=== PATIENT | female | born 1960 | race Caucasian/White ===

== ENCOUNTER 2024-12-04 16:33 | Inpatient (IN) | payer MEDICARE, MEDICAID, SELFPAY ==
[2024-12-04] VITALS (9 sets, daily range): BP systolic 130–156; BP diastolic 90–97; PULSE 92–106; RESP 16–22; TEMP 36.1–36.6; O2SAT 90–100; BMI 16.3; BMI 16.9
--- NOTE | 2024-12-04 16:58 | XR_ITS ---
Examination: AP chest single view TECHNIQUE: AP portable upright chest single view Exam date and time: December 04, 2024 1723 hours Comparison July 08, 2024 INDICATIONS: Onset shortness of breath today. FINDINGS: Moderate hyperexpansion Accentuation interstitial markings No lobar pneumonia Normal heart size Prominent osteopenia IMPRESSION: COPD Basilar bronchitis pattern
--- NOTE | 2024-12-04 16:59 | EKG_ITS ---
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
[2024-12-04] MEDS: IPRATROPIUM RT 0.5 MG/ 2.5 ML NEBU 1 MG INH (17:12)
[2024-12-04] MEDS: ALBUTEROL RT 2.5 MG/0.5 ML NEBU 10 MG INH (17:12)
[2024-12-04] MEDS: MethylPREDNISolone SOD SUCC 62.5 MG/ML 2ML VIAL 125 MG IVP (17:20)
[2024-12-04 17:28] LABS: Basophils # (Auto) 0.1 Thou/mm3 (0.0-0.2); Basophils % (Auto) 1 % (0-2.5); Eosinophils # (Auto) 0.7 Thou/mm3 (0.0-0.5); Eosinophils % (Auto) 6 % (0-10); Hemoglobin 11.7 g/dL (12.0-16.0); Immature Granulocytes % (Auto) 0 % (0-0); Immature Granulocytes Auto 0.04 Thou/mm3 (0.00-0.00); Lymphocytes # (Auto) 3.5 Thou/mm3 (1.0-4.8); Lymphocytes % (Auto) 28 % (10-50); Mean Corpuscular HGB Conc 32.5 g/dl (31.0-37.0); Mean Corpuscular Hemoglobin 30.4 pg (25.0-35.0); Mean Corpuscular Volume 94 fL (80-100); Monocytes # (Auto) 0.8 Thou/mm3 (0.0-0.8); Monocytes % (Auto) 7 % (0-12); Neutrophils # (Auto) 7.1 Thou/mm3 (1.8-7.7); Neutrophils % (Auto) 58 % (37-80); Nucleated Red Blood Cell % 0 /100 WBC (0); Platelet Count 493 Thou/mm3 (140-440); RDW Standard Deviation 54.1 fL (36.4-46.3); Red Blood Count 3.85 Miln/mm3 (4.00-5.20); White Blood Count 12.2 Thou/mm3 (3.6-11.0)
--- NOTE | 2024-12-04 17:41 | EDNOTE_ITS ---
ED SOB =RME/HPI General Chief Complaint: Shortness of Breath/Dyspnea Stated Complaint: I CAN'T BREATH X 4 DAYS ;USES HOME O2 WHEN NEEDED Time Seen by Provider: 12/04/24 17:27 Arrival date/time: 12/04/24 16:33 RME / HPI RME / HPI Narrative: DR. MCGEE MAIN ED EVALUATION: 64 year old female with past medical history significant for COPD on 3L home o2, primary hypertension, chronic pain on opiates presents to the Emergency Department with complaint of shortness of breath onset 4 days. Symptoms are moderate. Patient uses home oxygen when needed. Related Data Home Medications ?Medication ?Instructions ?Recorded ?Confirmed albuterol sulfate 90 mcg/actuation 2 puff IH Q4HR PRN COUGH OR 01/18/15 07/06/24 aerosol inhaler (ProAir HFA) CONGESTION ##0 hydrocodone 10 mg-acetaminophen 1 tab PO QID 10/26/22 07/06/24 325 mg tablet losartan 25 mg tablet 25 mg PO QDAY 03/15/24 07/06/24 metoprolol succinate 25 mg 25 mg PO QDAY 03/15/24 07/06/24 tablet,extended release 24 hr nicotine 14 mg/24 hr daily 14 mg topical QDAY 03/15/24 07/06/24 transdermal patch furosemide 20 mg tablet 20 mg PO QDAY 07/06/24 07/06/24 lidocaine 4 % topical patch 4 patch topical HS 07/06/24 07/06/24 Previous Rx's ?Medication ?Instructions ?Recorded fluticasone fur. 200 mcg-umeclid 1 inh inhalation Q24H COPD #60 ea 03/21/24 62.5 mcg-vilant 25 mcg inhalat.powder (Trelegy Ellipta) Allergies Allergy/AdvReac Type Severity Reaction Status Date / Time ibuprofen Allergy Severe THROAT Verified 12/04/24 16:35 SWELLS, CANT BREATH ketorolac Allergy Severe THROAT Verified 12/04/24 16:35 SWELLS, CANT BREATH naproxen Allergy Severe SWELLING Verified 12/04/24 16:35 TO THROAT, CANT BREATH NSAIDS (Non-Steroidal Allergy Severe THROAT Verified 12/04/24 16:35 Anti-Inflamma SWELLS, CANT BREATH tramadol Allergy Severe Swelling Verified 12/04/24 16:35 of Lip/Tongue/Throat Review of Systems Review of Systems Systems Reviewed: All systems reviewed, normal except as documented Narrative Review of Systems: GEN: No fever, no chills, no weight loss EYES: No discharge, no visual changes, no pain HEENT: No ear pain, no congestion, no sore throat PULM: + shortness of breath, no cough, no congestion CV: No chest pain, no dyspnea on exertion, no palpitations GI: No nausea, no vomiting, no diarrhea, no pain, no constipation : No frequency, no urgency and no dysuria MUSC/SKEL: No joint pain, no back pain SKIN: No rash PSYCH: No hallucinations, no depression HEME/LYMPH: No easy bleeding or bruising tendencies NEURO: No weakness, no headache Past Medical History Past Medical History NEUROLOGIC: Positive Cerebrovascular Accident (x3) CARDIAC: Positive Myocardial Infarction (x5) and Hypertension; Negative Cardiac Disorders or Congestive Heart Failure RESPIRATORY: Positive Chronic Obstructive Pulmonary Disease (COPD) and Emphysema; Negative Asthma GENITOURINARY: Negative Renal Disease MUSCULOSKELETAL: Positive Fibromyalgia ENDOCRINE: Positive Hypothyroidism; Negative Diabetes Mellitus Type 1 or Diabetes Mellitus Type 2 HEMATOLOGIC: Negative Sickle Cell Disease OTHER HISTORY: Positive Hospitalization and Falls (approx 1 month ago; tripped in house); Negative Blood Transfusions or Anesthesia Reactions Surgical History SURGICAL: Positive Coronary Stent and Hysterectomy Social History SMOKING STATUS: Former smoker SECOND HAND EXPOSURE: No SUBSTANCE USE: does not use ALCOHOL: Never ED Exam Narrative Physical exam: GENERAL APPEARANCE: alert and oriented x 4, well-developed, well-nourished, no acute distress VITALS: All vitals were reviewed and the pulse ox is 98% on 2L/min via nasal cannula. HEENT: Normocephalic, atraumatic; pupils equal, round, reactive to light; EOMI; mucous membranes pink, moist; oropharynx clear NECK: Supple LUNGS: CTABL; no wheezes, no rales, no rhonchi HEART: Regular rate, regular rhythm; normal S1, S2; no murmurs ABDOMEN: non distended; normal BS; soft, no tenderness, no guarding, no rebound; no masses, no organomegaly, no hernia BACK: no CVA tenderness EXTREMITIES: atraumatic; no edema NEUROLOGIC: awake; alert and oriented x4; cranial nerves II-XII grossly intact; no focal sensory or motor deficits PSYCHIATRIC: appropriate mood and affect SKIN: warm, dry, normal color; no rashes Course Course Course Narrative: 1800: Patient was signed out to Dr. Day. Past medical, surgical, social and family history reviewed. Vitals and home medications reviewed. Results and treatment plan discussed. They will assume the care of the patient at this time and will follow the patient, pending diagnostic tests and final disposition. Quality Measures none Orders Category Date Time Status Bedside COVID-19 Antigen Test NOW Care 12/04/24 17:00 Active Bedside Influenza A&B Antigen Test NOW Care 12/04/24 17:00 Completed Beverage Inspection Machine Tender NOW Care 12/04/24 16:58 Active EKG (ED ONLY) *Do not use* NOW Care 12/04/24 16:59 Completed EKG (ED Only) Stat Exams 12/04/24 16:59 Draft XR chest 1V portable Stat Exams 12/04/24 16:58 Completed B-Type Natriuretic Peptide Stat Lab 12/04/24 17:16 Completed CBC Stat Lab 12/04/24 17:16 Completed Comprehensive Metabolic Panel Stat Lab 12/04/24 17:16 Completed Magnesium Stat Lab 12/04/24 17:16 Completed Partial Thromboplastin Time Stat Lab 12/04/24 17:16 Completed Prothrombin Time with INR Stat Lab 12/04/24 17:16 Completed Troponin I Stat Lab 12/04/24 17:16 Completed ALBUTEROL RT 0.5ml [Proventil Rt 0.5ml] Med 12/04/24 17:00 Discontinued 10 mg INH X1 ONE Ipratropium Mccormick Rt Steph [Atrovent Rt Steph] Med 12/04/24 17:00 Discontinued 1 mg INH X1 ONE MethylPREDNISolone.* [SoluMEDROL Inj] Med 12/04/24 16:58 Discontinued 125 mg IVP X1 ONE Sodium Chloride Rt Steph 0.9% [NS Rt Steph 0.9%] Med 12/04/24 17:00 Active 3 ml INH PRN PRN Vital Signs Vital signs: Vital Signs Temperature 98 F 12/04/24 16:44 Pulse Rate 106 H 12/04/24 16:44 Respiratory Rate 22 H 12/04/24 16:44 Blood Pressure 156/90 H 12/04/24 16:44 Pulse Oximetry (%) 90 L 12/04/24 16:44 Oxygen Delivery Method Room Air 12/04/24 16:44 Shortness of Breath / Dyspnea MDM Narrative MDM Narrative:: I, Anne Marie Gallegos, am scribing for and in the presence of Dr. Mcgee. Patient data External records reviewed:: [facility] previous records (Reviewed last admission discharge dated 07/14/24, patient admitted for the following: COPD exacerbation.) Clinical information provided by:: patient Social determinants that could affect healthcare access:: other (specify) (former smoker) Patient has the following chronic illnesses:: COPD on 3L home o2, primary hypertension, chronic pain on opiates How is presenting disease/condition affected by chronic disease/condition?: exacerbated by Evaluation data The following diagnostics were reviewed and interpreted by me:: lab results, radiology exam(s) and EKG tracing(s) Lab and/or radiology exams considered but not ordered:: none Interpretation Summary: Procedure(s): XR chest 1V portable Accession Number(s): [id number] cc: Mauri (LUZ MARINA),Fred RAZA; Eemterio Almonte MD~ Examination: AP chest single view TECHNIQUE: AP portable upright chest single view Exam date and time: December 04, 2024 1723 hours Comparison July 08, 2024 INDICATIONS: Onset shortness of breath today. FINDINGS: Moderate hyperexpansion Accentuation interstitial markings No lobar pneumonia Normal heart size Prominent osteopenia IMPRESSION: COPD Basilar bronchitis pattern Dictated By: Emeterio Almonte MD Medications / Prescriptions Medications or Prescriptions considered but not ordered:: none Medication administrations:: Medication Administration History Sodium Chloride (Sodium Chloride Rt Steph 0.9% 3 Ml Nebu) 3 ml INH PRN PRN PRN Reason: SOLN Stop: 01/03/25 16:59 Discontinued Medications Albuterol (Albuterol Rt 2.5 Mg/0.5 Ml Nebu) 10 mg INH X1 ONE Stop: 12/04/24 17:01 Last Admin: 12/04/24 17:12 Dose: 10 mg Documented By: [facility] Ipratropium Mccormick (Ipratropium Rt 0.5 Mg/ 2.5 Ml Nebu) 1 mg INH X1 ONE Stop: 12/04/24 17:01 Last Admin: 12/04/24 17:12 Dose: 1 mg Documented By: [facility] Methylprednisolone Sodium Succinate (Methylprednisolone Sod Succ 62.5 Mg/Ml 2ml Vial) 125 mg IVP X1 ONE Stop: 12/04/24 16:59 Last Admin: 12/04/24 17:20 Dose: 125 mg Documented By: see above Consultations Consultation(s) initiated? (list below): No Diagnosis Shortness of Breath Differential Diagnosis: acute exacerbation of chronic obstructive airways disease, congestive heart failure, community acquired pneumonia, asthma with exacerbation and pulmonary embolism Most likely diagnosis given after review of the tests above:: No official diagnoses at this time, still pending diagnostic tests. Patient signout to the it operations specialist provider. Admission Indicated Admission indicated?: not indicated Explain why admission is indicated or not indicated:: No final disposition plan at this time, still pending diagnostic tests. Patient signout to the it operations specialist provider. Admission Request Was there a request for admission?: No Disposition Plan Disposition Plan: other (specify) (Patient signout to the it operations specialist provider. ) Discharge Plan Prescriptions/Referrals Prescriptions/Med Rec: No Action albuterol sulfate [ProAir HFA] 8.5 GM HFA aerosol inhaler 2 puff IH Q4HR PRN (Reason: COUGH OR CONGESTION) Qty: 0 hydrocodone-acetaminophen 10-325 mg tablet 1 tab PO QID Hold Instructions: Resume on 12/29/23. Due to acute liver injury lidocaine 4 % adhesive patch,medicated 4 patch TOPICAL HS furosemide 20 mg tablet 20 mg PO QDAY nicotine 14 mg/24 hr patch 24 hour 14 mg TOPICAL QDAY losartan 25 mg tablet 25 mg PO QDAY metoprolol succinate 25 mg tablet extended release 24 hr 25 mg PO QDAY Trelegy Ellipta 200-62.5-25 mcg blister with device 1 inh inhalation Q24H Qty: 60 6RF Patient/Caregiver Discharge Instructions Print Language: Guyanese
[2024-12-04 17:47] LABS: INR 0.9 (0.9-1.3); Partial Thromboplastin Time 29.1 Seconds (22.0-36.0); Prothrombin Time 10.4 Seconds (9.0-12.2)
[2024-12-04 17:53] LABS: B-Type Natriuretic Peptide 51 pg/mL (0-100)
[2024-12-04 17:55] LABS: Alanine Aminotransferase 11 U/L (10-49); Albumin, Serum 5.1 gm/dL (3.4-4.8); Albumin/Globulin Ratio 2.1 (1.2-2.2); Alkaline Phosphatase 120 U/L (46-116); Anion Gap 6 (7-16); Aspartate Amino Transferase 19 U/L (0-34); BUN/Creatinine Ratio 31 Ratio (12-20); Bilirubin,Total 0.2 mg/dL (0.3-1.2); Blood Urea Nitrogen 34 mg/dL (9-23); Calcium 9.5 mg/dL (8.3-10.6); Calcium (Corrected) 9.5 mg/dL (8.5-10.1); Carbon Dioxide 28.7 mMol/L (20.0-31.0); Chloride 100 mMol/L (98-107); Creatinine (Component) 1.1 mg/dL (0.6-1.3); Estimated Creatinine Clearance 30.6 mL/min (>60); Globulin 2.4 gm/dL (2.3-3.5); Glucose 86 mg/dL (74-106); Magnesium 2.5 mg/dL (1.6-2.6); Osmolality,Calculated 276 (275-295); Potassium 5.4 mMol/L (3.4-5.1); Sodium 135 mMol/L (136-145); Total Protein 7.5 gm/dL (5.7-8.2); Troponin I < 0.020 ng/mL (0.0-0.045); eGFR 56 See Note
--- NOTE | 2024-12-04 18:48 | PD.EDADDENDU ---
Emergency Room Addendum Addendum Narrative: 1800: Care assumed from Dr. Mcgee, the previous shift emergency physician. Past medical, surgical, social and family history reviewed. Vitals and home medications reviewed. I will assume the care of the patient at this time, pending diagnostic tests and final disposition. Please refer to the emergency department record for history and examination from initial visit.? EKG room at 1704 hours My interpretation: Sinus tachycardia, rate 101, SCT wave change two V3. No elevations. No depressions. Physical exam Patient is laying in the bed. Mild increased respiratory rate. Otherwise awake and talking. No pedal edema. Drinking soda. 1929: Reassessment at this time, patient in mild respiratory distress. Pulse ox is 91% on 3 L/min via a nasal cannula. Patient will be admitted for COPD exacerbation and chronic pain syndrome. 1931: Discussed test HPI, PMHx, lab, radiology results and/or management with hospitalist Dr. Cardenas. Will admit for further evaluation and management. Accepts patient for admission. RADIOLOGY Procedure(s): XR chest 1V portable Accession Number(s): [id number] cc: Mauri (LUZ MARINA),Fred RAZA; Emeterio Almonte MD~ Examination: AP chest single view TECHNIQUE: AP portable upright chest single view Exam date and time: December 04, 2024 1723 hours Comparison July 08, 2024 INDICATIONS: Onset shortness of breath today. FINDINGS: Moderate hyperexpansion Accentuation interstitial markings No lobar pneumonia Normal heart size Prominent osteopenia IMPRESSION: COPD Basilar bronchitis pattern Dictated By: Emeterio Almonte MD
[2024-12-04] MEDS: SODIUM CHLORIDE 0.9% 1000 ML 1,000 ML 999 ML IV (19:37)
[2024-12-04] MEDS: SODIUM CHLORIDE 0.9% 1000 ML 1,000 ML 75 ML IV (19:39)
--- NOTE | 2024-12-04 19:49 | EVENTNT_ITS ---
Documentation for date of: 12/04/24 Event Note Event Note: A 64-year-old female presented to the ER with the chief complaint of shortness of breath. The patient reported experiencing symptoms for the past four days, including moderate shortness of breath, a productive cough with green sputum, fever, chills, and chest pain that she described as not originating from her lungs. She denied diarrhea and reported having no energy but maintained a good appetite. The patient has a significant past medical history of COPD, diastolic heart failure, hypertension, anxiety, and chronic musculoskeletal pain managed with opioids. She is on home oxygen as needed and uses a nebulizer. She quit smoking one year ago, with a smoking history of over 50 years+, and does not consume alcohol or use street drugs. She has had multiple prior hospitalizations for COPD exacerbations, the most recent being in 2023. She lives with her and is the primary caregiver for her three grandchildren. In the Emergency Department, the patient was initially evaluated with vital signs showing a temperature of 98?F, heart rate of 104 bpm, respiratory rate of 22 breaths per minute, blood pressure of 156/90 mmHg, and oxygen saturation of 90% on room air. She received treatment with albuterol, ipratropium, and methylprednisone. Laboratory results revealed a WBC count of 12.2, hemoglobin of 11.7, sodium of 135, potassium of 5.4, and BUN of 34. Imaging demonstrated findings consistent with COPD and a basilar bronchitis pattern. The patient is being admitted for further management. Assessment and Plan #Acute COPD Exacerbation * Assessment: Likely precipitated by respiratory infection, evidenced by productive cough with purulent sputum, fever, and chills. Severity supported by tachypnea, tachycardia, and hypoxia on admission. Imaging confirms bronchitis pattern. History of frequent exacerbations increases risk. * Plan: * Continue inhaled bronchodilator therapy with Duoneb (albuterol/ipratropium) every 4 hours. * Initiate prednisone 40 mg PO daily for 5 days. * Start empiric antibiotics targeting Klebsiella oxytoca, as per prior sputum culture (ceftriaxone). * Continue long-acting inhaler therapy. * Maintain oxygen therapy to achieve SpO2 of 88?92% with titrated supple mental oxygen. * Monitor for respiratory distress or worsening, including ABG assessment for hypercapnia or acidosis. #Diastolic Heart Failure * Assessment: Stable at present, with BNP of 51 indicating no acute decompensation. * Plan: * Monitor volume status closely to avoid fluid overload. * Avoid excessive fluid administration; aim to maintain euvolemia. * Continue and optimize antihypertensive therapy as needed. #Hypertension * Assessment: Elevated blood pressure (156/90 mmHg) on admission. * Plan: * Monitor and adjust antihypertensive therapy during hospitalization. * Continue metoprolol cautiously, given its cardioselective properties, and assess for respiratory side effects. #Chronic Pain Management * Assessment: Chronic musculoskeletal pain managed with opioids, which may affect respiratory drive, especially during exacerbation. * Plan: * Continue [place] at the lowest effective dose for pain control. #Anxiety * Plan: Xanax PRN
[2024-12-04] MEDS: cefTRIAXone/D5w 1gm IV premix 50 ML IV (20:07)
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
[2024-12-04 20:37] LABS: Procalcitonin 0.23 ng/ml (0.0-0.49)
--- NOTE | 2024-12-04 21:30 | PC.NURSE ---
Pt provided with sandwich, juice. Tolerated well.
[2024-12-04] MEDS: ALPRazoLAM 0.25 MG TABLET 0.5 MG PO (21:54)
[2024-12-04] MEDS: HYDROcodone/APAP 10/325 TAB PO (22:01)
--- NOTE | 2024-12-04 22:36 | PC.RT ---
RT in room to assess pt, pt alert and oriented.Pt is resting comfortably and does not appear to be in any distress. Pt states she had a 2 hour long breathing tx in ED and feels okay at this time and would like to wait until her scheduled 0200 breahting tx. Pt does not wish to have ABG done at this time nor does she want to take Mucomyst. Pt states she is able to move her secretions up and out on her own. RT called Dr. John, mucomyst will be made PRN per and ABG will be scheduled to a later time.
[2024-12-05] VITALS (14 sets, daily range): BP systolic 96–122; BP diastolic 59–77; PULSE 87–102; RESP 17–20; TEMP 36.1–36.5; O2SAT 94–100; BMI 17.0
[2024-12-05] MEDS: ALBUTEROL/IPRATROPIUM (Duoneb) RT SOL 3 ML NEBU INH ×6 (02:55→23:02)
[2024-12-05] MEDS: ALPRazoLAM 0.25 MG TABLET 0.5 MG PO ×2 (03:57→18:28)
[2024-12-05] MEDS: HYDROcodone/APAP 10/325 TAB PO ×4 (03:58→22:51)
[2024-12-05] MEDS: FLUTICASONE/SALMETEROL 250/50 14 DOSE INH 1 PUFF INH ×2 (06:34→19:03)
[2024-12-05 06:37] LABS: Basophils % (Auto) 0 % (0-2.5); Eosinophils % (Auto) 0 % (0-10); Hematocrit 31.1 % (36.0-46.0); Hemoglobin 9.9 g/dL (12.0-16.0); Immature Granulocytes % (Auto) 0 % (0-0); Immature Granulocytes Auto 0.02 Thou/mm3 (0.00-0.00); Lymphocytes # (Auto) 0.7 Thou/mm3 (1.0-4.8); Lymphocytes % (Auto) 13 % (10-50); Mean Corpuscular HGB Conc 31.8 g/dl (31.0-37.0); Mean Corpuscular Hemoglobin 30.3 pg (25.0-35.0); Mean Corpuscular Volume 95 fL (80-100); Monocytes # (Auto) 0.1 Thou/mm3 (0.0-0.8); Monocytes % (Auto) 1 % (0-12); Neutrophils # (Auto) 4.4 Thou/mm3 (1.8-7.7); Neutrophils % (Auto) 85 % (37-80); Nucleated Red Blood Cell % 0 /100 WBC (0); Platelet Count 413 Thou/mm3 (140-440); RDW Standard Deviation 54.5 fL (36.4-46.3); Red Blood Count 3.27 Miln/mm3 (4.00-5.20); White Blood Count 5.2 Thou/mm3 (3.6-11.0)
[2024-12-05 06:53] LABS: Anion Gap 7 (7-16); BUN/Creatinine Ratio 38 Ratio (12-20); Blood Urea Nitrogen 23 mg/dL (9-23); Calcium 9.1 mg/dL (8.3-10.6); Carbon Dioxide 27.1 mMol/L (20.0-31.0); Chloride 100 mMol/L (98-107); Creatinine (Component) 0.6 mg/dL (0.6-1.3); Glucose 160 mg/dL (74-106); Magnesium 2.1 mg/dL (1.6-2.6); Osmolality,Calculated 274 (275-295); Potassium 4.8 mMol/L (3.4-5.1); Sodium 134 mMol/L (136-145); eGFR > 60 See Note
[2024-12-05] MEDS: predniSONE 20 MG TABLET 40 MG PO (08:44)
[2024-12-05] MEDS: cefTRIAXone/D5w 1gm IV premix 50 ML IV (08:44)
[2024-12-05] MEDS: DOXYCYCLINE INJ 100 MG in SODIUM CHLORIDE 0.9% (P) 100 ML IV ×2 (08:44→20:44)
[2024-12-05] MEDS: ENOXAPARIN SOD INJ 40 MG/0.4 ML SYRINGE SC (08:45)
[2024-12-05] MEDS: SODIUM CHLORIDE 0.9% 1000 ML 1,000 ML 75 ML IV (10:00)
--- NOTE | 2024-12-05 10:08 | PC.SS ---
Patient Mer Isaacs is 64 year old female admitted for COPD Exacerbation. SS met with patient at bedside to complete initial assessment and to discuss discharge planning. Patient confirmed demographic information. Patient identifies her Ki Isaacs [phone] as her surrogate decision maker. Patient resides at home with her . Pt states she is able to complete all ADL?s independently, pt reports she utilizes O2 at home from [facility] at 2-3L. PCP is Dr. Henry Madrigal. Patients choice of pharmacy is [facility]. Patient will return home at time of discharge. Patient's will provide transportation. Discharge Plan: Home Next of Kin: , Ki Isaacs [phone]
--- NOTE | 2024-12-05 13:17 | PD.RESPRO ---
Documentation for date of: 12/05/24 Exam Vital Signs Temp Pulse Resp BP Pulse Ox O2 Del Method O2 Flow Rate 97.1 F 102 H 18 108/68 96 Room Air 2 12/05/24 11:42 12/05/24 11:42 12/05/24 11:42 12/05/24 11:42 12/05/24 11:42 12/05/24 11:42 12/05/24 10:23 Objective Labs 12/05/24 05:05 12/05/24 05:05 Labs: Laboratory Results - last 24 hr 12/04/24 12/05/24 17:16 05:05 WBC 12.2 H 5.2 D RBC 3.85 L 3.27 L Hgb 11.7 L 9.9 L Hct 36.0 31.1 L MCV 94 95 MCH 30.4 30.3 MCHC 32.5 31.8 RDW Std Deviation 54.1 H 54.5 H Plt Count 493 H 413 D Neut % (Auto) 58 85 H Lymph % (Auto) 28 13 Wallace % (Auto) 7 1 Eos % (Auto) 6 0 Baso % (Auto) 1 0 Neut # (Auto) 7.1 4.4 Lymph # (Auto) 3.5 0.7 L Wallace # (Auto) 0.8 0.1 Eos # (Auto) 0.7 H 0.0 Baso # (Auto) 0.1 0.0 Immature Gran # (Auto) 0.04 H 0.02 H Absolute Nucleated RBC 0.00 0.00 Immature Gran % 0 0 Nucleated RBC % 0 0 PT 10.4 INR 0.9 APTT 29.1 Sodium 135 L 134 L Potassium 5.4 H 4.8 D Chloride 100 100 Carbon Dioxide 28.7 27.1 Anion Gap 6 L 7 BUN 34 H 23 Creatinine 1.1 0.6 D Estim Creat Clear Calc 30.6 L 58.0 L eGFR 56 L > 60 BUN/Creatinine Ratio 31 H 38 H Glucose 86 160 H D Calculated Osmolality 276 274 L Calcium 9.5 9.1 Corrected Calcium 9.5 Magnesium 2.5 2.1 Total Bilirubin 0.2 L AST 19 ALT 11 Alkaline Phosphatase 120 H Troponin I < 0.020 B-Natriuretic Peptide 51 Total Protein 7.5 Albumin 5.1 H Globulin 2.4 Albumin/Globulin Ratio 2.1 Procalcitonin 0.23 Quality Measures Quality Measures none Advance care planning discussed with:: patient Assessment & Plan Assessment Current Active Medications: Generic Name Dose Route Start Last Admin Trade Name Freq PRN Reason Stop Dose Admin Acetaminophen 650 mg 12/04/24 19:35 Acetaminophen 325 Mg Tablet PO 01/03/25 19:34 Q6H PRN Fever >101.5 Hydrocodone Bitart/Acetaminophen 1 tab 12/04/24 19:39 12/05/24 10:30 Hydrocodone/Apap 10/325 Tab PO 12/09/24 19:38 1 tab Q6HR PRN Administration PAIN Acetylcysteine 3 ml 12/05/24 11:18 Acetylcysteine Rt Steph 10% 4 Ml Nebu INH 01/03/25 22:59 Q4HRRT PRN CONGESTION Albuterol/Ipratropium 3 ml 12/04/24 23:00 12/05/24 10:22 Albuterol/Ipratropium (Duoneb) Rt Steph 3 Ml Nebu INH 01/03/25 22:59 3 ml Q4HRRT DIANNE Administration Alprazolam 0.5 mg 12/04/24 19:38 12/05/24 03:57 Alprazolam 0.25 Mg Tablet PO 12/09/24 19:37 0.5 mg BID PRN Administration ANXIETY Benzonatate 200 mg 12/04/24 21:16 Benzonatate 100 Mg Capsule PO 01/03/25 21:15 Q8HR PRN COUGH OR CONGESTION Protocol Enoxaparin Sodium 40 mg 12/05/24 09:00 12/05/24 08:45 Enoxaparin Sod Inj 40 Mg/0.4 Ml Syringe SC 12/19/24 08:59 40 mg QDAY DIANNE Administration Ceftriaxone Sodium/Dextrose 50 mls @ 100 mls/hr 12/04/24 19:44 12/05/24 08:44 Rocephin/D5w 1gm Iv Premix IV 12/11/24 19:43 100 mls/hr QDAY DIANNE Administration Doxycycline Hyclate 100 mg/ 100 mls @ 100 mls/hr 12/05/24 09:00 12/05/24 08:44 Sodium Chloride IV 12/12/24 08:59 100 mls/hr BID DIANNE Administration Metoprolol Succinate 25 mg 12/05/24 09:00 12/05/24 08:48 Metoprolol Succinate Xl 25 Mg Tabcr PO 01/04/25 08:59 Not Given QDAY DIANNE Prednisone 40 mg 12/05/24 09:00 12/05/24 08:44 Prednisone 20 Mg Tablet PO 01/04/25 08:59 40 mg QDAY DIANNE Administration Fluticasone/Salmeterol 1 puff 12/05/24 07:00 12/05/24 06:34 Fluticasone/Salmeterol 250/50 14 Dose Inh INH 01/04/25 06:59 1 puff BIDRT DIANNE Administration Sodium Chloride 3 ml 12/04/24 17:00 Sodium Chloride Rt Steph 0.9% 3 Ml Nebu INH 01/03/25 16:59 PRN PRN SOLN
--- NOTE | 2024-12-05 13:19 | PD.RESCONSUL ---
HPI Data of Consult Requesting Physician: Tyra Carter MD Admitting Provider: Casimiro Cardenas MD Attending Provider: Tyra Carter MD Primary Care Provider: Henry Madrigal MD Consult Narrative History of present illness: Mer is a 64 y/o female with PMHx of COPD (~40 pack years, diagnosed 6 years ago on 2 to 3 L of home oxygen), HFpEF with diastolic dysfunction (EF 60 to 65%), previous ME, essential hypertension, anxiety, and chronic low back pain who comes for evaluation of generalized weakness fatigue productive cough and worsening shortness of breath upon exertion with no associated chest palpitations or pain. Patient reports that this is started about 4 to 5 days ago and has noticed she has been coughing up more that she describes her sputum is green. She also notices some pain in her chest when she coughs however does not have any chest pain at rest. She also says that she lives with her and her grandkids who are young can go to school and thinks she may have gotten something from them. She also says that she has a swamp cooler at home that brings in cool air, however has not used in over 3 months. She says that the last time she has traveled it has been since August in which she went on a cruise but nowhere recently after that. She says she was sent here from her through freight engineer office, Dr. Sherwood. She says that she usually uses an albuterol inhaler in which she notices that she has been using that more lately. She says that she got formally diagnosed with COPD after she did pulmonary function testing, however does not see a jelly maker and has not seen one yet. She does say she takes her medicines as prescribed. She says that she has been hospitalized before for similar symptoms, and her first COPD exacerbation was in 2021. She also says that at home she does not measure her oxygen and just keeps around 2 to 3 L at home. No other complaints at this time. ED course: Patient arrived to the ED with a blood pressure 156/90, heart rate of 106, respiratory of 20, temperature of 98, oxygen saturation of 88% on room air. Patient was worked up and was found to have a hemoglobin of 11.7, BUN/creatinine of 24 and 1.1 respectively, white count of 5.2 troponin negative x 1, Pro-Luis Carlos unremarkable. EKG shows sinus tachycardia rate in the 100s but may resemble multifocal. Patient had checks x-ray done which showed hyperexpansion of both lungs, however no edema, pleural effusion, consolidation noted on chest x-ray. Patient was given albuterol 10 mg ipratropium 10 mg, methylprednisolone 125 mg x 1, given a 1 L bolus. Medicine was consulted and patient was admitted to floors. She also says that at home she does not measure her oxygen and just keeps around 2 to 3 L at home. PMHx: As above Surgeries: Hysterectomy, carpal tunnel surgery, hand surgery to her left 2 fingers for an injury Allergies: Ibuprofen, Toradol, naproxen, NSAIDs, tramadol Meds: Lasix 20 mg by mouth every day, metoprolol XL 25 mg by mouth every day, Albuterol, Losartan 25 mg Family Hx: No FHx of heart disease, stents or CABG, however, mother had DM2 Social Hx: Born in [facility], lived partly in [place], moved to [facility], [place]. Returned to [place] in 1981. 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 Lives with and her grandkids. Never has been a big drinker b/her dad was an alcoholic, does not remember last time she drank. Denies current or past drug use, smoking ~40 pack years, never smoke more than a pack a day, quit smoking when she got diagnosed with COPD. Does not exercise much b/c she gets SOB very easily. Says she eats pretty much whatever she wants. cc:: cc: Tyra Carter MD Review of Systems Review of Systems Narrative Review of Systems: 12 point ROS was reviewed and is otherwise negative unless stated directly in the HPI. Exam Vital Signs Temp Pulse Resp BP Pulse Ox O2 Del Method O2 Flow Rate 97.1 F 102 H 18 108/68 96 Room Air 2 12/05/24 11:42 12/05/24 11:42 12/05/24 11:42 12/05/24 11:42 12/05/24 11:42 12/05/24 11:42 12/05/24 10:23 Narrative Exam General: AAOx3, NAD, frail woman, looks older than her age, little muscle mass, curled up in bed on her side HEENT: Moist mucous membranes, conjunctiva clear, EOMI, PERRLA, Cardiovascular: S1, S2, radial pulses +2 bilat, Tachycardic Pulmonary: Wheezing throughout all lung valencia GI: No tenderness to light or deep palpitation, no guarding, rigidity, rebound tenderness or distension Extremities: No presence of trace or pitting edema in lower extremities bilaterally, dorsalis pedis pulses +2 bilaterally, little muscle mass on her LE Neuro: AAOx3, no focal motor or sensory deficits in the UE or LE bilat Psych: Good judgement, thought and behavior. cooperaetive Results Labs 12/07/24 04:35 12/07/24 04:35 Labs: Short CBC 12/04/24 12/05/24 Range/Units 17:16 05:05 WBC 12.2 H 5.2 D (3.6-11.0) Thou/mm3 Hgb 11.7 L 9.9 L (12.0-16.0) g/dL Hct 36.0 31.1 L (36.0-46.0) % Plt Count 493 H 413 D (140-440) Thou/mm3 BMP 12/04/24 12/05/24 17:16 05:05 Sodium 135 L 134 L Potassium 5.4 H 4.8 D Chloride 100 100 Carbon Dioxide 28.7 27.1 BUN 34 H 23 Creatinine 1.1 0.6 D Glucose 86 160 H D Calcium 9.5 9.1 Cardiac Enzymes 12/04/24 Range/Units 17:16 Troponin I < 0.020 (0.0-0.045) ng/mL Liver Function 12/04/24 Range/Units 17:16 Total Bilirubin 0.2 L (0.3-1.2) mg/dL AST 19 (0-34) U/L ALT 11 (10-49) U/L Alkaline Phosphatase 120 H (46-116) U/L Albumin 5.1 H (3.4-4.8) gm/dL Quality Measures Quality Measures none Advance care planning discussed with:: patient Medications Home Medications and Allergies Home Medications ?Medication ?Instructions ?Recorded ?Confirmed ?Type albuterol sulfate 90 mcg/actuation 2 puff IH Q4HR PRN COUGH OR 01/18/15 12/04/24 History aerosol inhaler (ProAir HFA) CONGESTION ##0 hydrocodone 10 mg-acetaminophen 1 tab PO QID 10/26/22 12/04/24 History 325 mg tablet losartan 25 mg tablet 25 mg PO QDAY 03/15/24 12/04/24 History furosemide 20 mg tablet 20 mg PO QDAY 07/06/24 12/04/24 History Allergies Allergy/AdvReac Type Severity Reaction Status Date / Time ibuprofen Allergy Severe THROAT Verified 12/04/24 16:35 SWELLS, CANT BREATH ketorolac Allergy Severe THROAT Verified 12/04/24 16:35 SWELLS, CANT BREATH naproxen Allergy Severe SWELLING Verified 12/04/24 16:35 TO THROAT, CANT BREATH NSAIDS (Non-Steroidal Allergy Severe THROAT Verified 12/04/24 16:35 Anti-Inflamma SWELLS, CANT BREATH tramadol Allergy Severe Swelling Verified 12/04/24 16:35 of Lip/Tongue/Throat Visit Medications Acetaminophen (Acetaminophen 325 Mg Tablet) 650 mg PO Q6H PRN PRN Reason: Fever >101.5 Stop: 01/03/25 19:34 Hydrocodone Bitart/Acetaminophen (Hydrocodone/Apap 10/325 Tab) 1 tab PO Q6HR PRN PRN Reason: PAIN Stop: 12/09/24 19:38 Last Admin: 12/05/24 10:30 Dose: 1 tab Acetylcysteine (Acetylcysteine Rt Steph 10% 4 Ml Nebu) 3 ml INH Q4HRRT PRN PRN Reason: CONGESTION Stop: 01/03/25 22:59 Albuterol/Ipratropium (Albuterol/Ipratropium (Duoneb) Rt Steph 3 Ml Nebu) 3 ml INH Q4HRRT DIANNE Stop: 01/03/25 22:59 Last Admin: 12/05/24 10:22 Dose: 3 ml Alprazolam (Alprazolam 0.25 Mg Tablet) 0.5 mg PO BID PRN PRN Reason: ANXIETY Stop: 12/09/24 19:37 Last Admin: 12/05/24 03:57 Dose: 0.5 mg Benzonatate (Benzonatate 100 Mg Capsule) 200 mg PO Q8HR PRN; Protocol PRN Reason: COUGH OR CONGESTION Stop: 01/03/25 21:15 Enoxaparin Sodium (Enoxaparin Sod Inj 40 Mg/0.4 Ml Syringe) 40 mg SC QDAY DIANNE Stop: 12/19/24 08:59 Last Admin: 12/05/24 08:45 Dose: 40 mg Ceftriaxone Sodium/Dextrose (Rocephin/D5w 1gm Iv Premix) 50 mls @ 100 mls/hr IV QDAY DIANNE Stop: 12/11/24 19:43 Last Admin: 12/05/24 08:44 Dose: 100 mls/hr Doxycycline Hyclate 100 mg/ (Sodium Chloride) 100 mls @ 100 mls/hr IV BID DIANNE Stop: 12/12/24 08:59 Last Admin: 12/05/24 08:44 Dose: 100 mls/hr Metoprolol Succinate (Metoprolol Succinate Xl 25 Mg Tabcr) 25 mg PO QDAY [facility] Stop: 01/04/25 08:59 Last Admin: 12/05/24 08:48 Dose: Not Given Prednisone (Prednisone 20 Mg Tablet) 40 mg PO QDAY [facility] Stop: 01/04/25 08:59 Last Admin: 12/05/24 08:44 Dose: 40 mg Fluticasone/Salmeterol (Fluticasone/Salmeterol 250/50 14 Dose Inh) 1 puff INH BIDRT DIANNE Stop: 01/04/25 06:59 Last Admin: 12/05/24 06:34 Dose: 1 puff Sodium Chloride (Sodium Chloride Rt Steph 0.9% 3 Ml Nebu) 3 ml INH PRN PRN PRN Reason: SOLN Stop: 01/03/25 16:59 Discontinued Medications Acetylcysteine (Acetylcysteine Rt Steph 10% 4 Ml Nebu) 3 ml INH Q4HRRT DIANNE Stop: 01/03/25 22:59 Acetylcysteine (Acetylcysteine Rt Steph 10% 4 Ml Nebu) 3 ml INH Q4HRRT PRN PRN Reason: CONGESTION Stop: 01/03/25 22:59 Albuterol (Albuterol Rt 2.5 Mg/0.5 Ml Nebu) 10 mg INH X1 ONE Stop: 12/04/24 17:01 Last Admin: 12/04/24 17:12 Dose: 10 mg Sodium Chloride (Ns) 1,000 mls @ 999 mls/hr IV .Q1H1M ONE Stop: 12/04/24 20:29 Last Infusion: 12/04/24 21:00 Dose: Infused Sodium Chloride (Ns) 1,000 mls @ 75 mls/hr IV .[id number] DIANNE Stop: 01/03/25 19:44 Last Admin: 12/05/24 10:00 Dose: 75 mls/hr Ipratropium Rhodell (Ipratropium Rt 0.5 Mg/ 2.5 Ml Nebu) 1 mg INH X1 ONE Stop: 12/04/24 17:01 Last Admin: 12/04/24 17:12 Dose: 1 mg Methylprednisolone Sodium Succinate (Methylprednisolone Sod Succ 62.5 Mg/Ml 2ml Vial) 125 mg IVP X1 ONE Stop: 12/04/24 16:59 Last Admin: 12/04/24 17:20 Dose: 125 mg Sodium Chloride (Sodium Chloride Rt 10% 15 Ml Nebu) 5 ml INH X1 ONE Stop: 12/04/24 19:57 Last Admin: 12/04/24 22:45 Dose: Not Given Assessment & Plan Plan Assessment Patient is a 64-year-old female with a past medical history significant for COPD on 2?3 L home oxygen as needed, heart failure with preserved ejection fraction [60 to 65%], sinus tachycardia versus multifocal atrial tachycardia, chronic musculoskeletal pain, essential hypertension and anxiety presented today with a chief complaint of worsening shortness of breath. Patient will be admitted for treatment and management of acute on chronic respiratory failure with hypoxia secondary to COPD exacerbation. #Chronic diastolic heart failure with preserved ejection fraction [60-65%] #Multifocal atrial tachycardia #Essential Hypertension Echo shows combined diastolic heart failure with EF of 60 to 65% Multifocal atrial tachycardia likely related to COPD, seen in a EKG We do not want to resume patient's home metoprolol, avoiding COPD We want patient to resume Cardizem 120 mg CD Plan: ? Avoid beta-blockers in setting of COPD ? We recommend to restart Cardizem 120 mg CD #Acute on chronic respiratory failure with hypoxia secondary to #COPD exacerbation Chest x-ray significant for hyperexpanded lung valencia. No signs of consolidation, pleural effusion or pulmonary edema. Considering patient having some cooling device at home, and patient having hyponatremia, we will see if patient has Legionella, however chest x-ray does look chest hyperexpanded Plan: ? Wean down on oxygen as tolerated ? Follow-up RSV ? Follow-up sputum culture ? DuoNebs Q4 hourly while awake ? Fluticasone/salmeterol inhaler 1 puff twice daily ? Mucomyst nebs Q4 hourly as needed ? Prednisone 40 Mg p.o. daily ? Chest physiotherapy every 4 hourly while awake with Acapella device ? Benzonatate 200 Mg p.o. Q8 hourly as needed for cough ? Patient started on ceftriaxone 1 g IV daily to cover for possible Klebsiella pneumonia. [From sputum culture 07/06/2024 grew Klebsiella] ? Avoid beta-blockers ?*Legionella #Anxiety #Chronic musculoskeletal pain #History of nicotine dependence Above handled by primary hospitalist team Patient seen and care discussed with my attending physician, Dr. Presley Agosto, PGY-1 Attending Provider Attestation/Addendum I have personally seen and examined the patient separately on the above date of service and discussed the plan of care with the resident. I reviewed the resident Dr. Bullock consultation progress note and agree with the resident findings and plan in the note above and have also edited the documentation to reflect my findings and plan. Tai Sherwood M.D. Interventional Cardiology
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
[2024-12-06] VITALS (14 sets, daily range): BP systolic 97–146; BP diastolic 68–91; PULSE 80–105; RESP 15–20; TEMP 36.1–36.9; O2SAT 92–100
[2024-12-06] MEDS: ALBUTEROL/IPRATROPIUM (Duoneb) RT SOL 3 ML NEBU INH ×6 (03:07→23:32)
[2024-12-06] MEDS: HYDROcodone/APAP 10/325 TAB PO ×4 (04:53→23:29)
[2024-12-06 05:55] LABS: Basophils % (Auto) 0 % (0-2.5); Eosinophils % (Auto) 0 % (0-10); Hematocrit 31.4 % (36.0-46.0); Immature Granulocytes % (Auto) 0 % (0-0); Immature Granulocytes Auto 0.03 Thou/mm3 (0.00-0.00); Lymphocytes # (Auto) 1.7 Thou/mm3 (1.0-4.8); Lymphocytes % (Auto) 24 % (10-50); Mean Corpuscular HGB Conc 31.8 g/dl (31.0-37.0); Mean Corpuscular Hemoglobin 30.7 pg (25.0-35.0); Mean Corpuscular Volume 96 fL (80-100); Monocytes # (Auto) 0.5 Thou/mm3 (0.0-0.8); Monocytes % (Auto) 7 % (0-12); Neutrophils # (Auto) 5.1 Thou/mm3 (1.8-7.7); Neutrophils % (Auto) 69 % (37-80); Nucleated Red Blood Cell % 0 /100 WBC (0); Platelet Count 379 Thou/mm3 (140-440); RDW Standard Deviation 55.2 fL (36.4-46.3); Red Blood Count 3.26 Miln/mm3 (4.00-5.20); White Blood Count 7.3 Thou/mm3 (3.6-11.0)
[2024-12-06] MEDS: ALPRazoLAM 0.25 MG TABLET 0.5 MG PO ×2 (06:09→17:43)
[2024-12-06 06:49] LABS: Alanine Aminotransferase < 7 U/L (10-49); Albumin, Serum 4.2 gm/dL (3.4-4.8); Alkaline Phosphatase 86 U/L (46-116); Anion Gap 7 (7-16); Aspartate Amino Transferase 12 U/L (0-34); BUN/Creatinine Ratio 42 Ratio (12-20); Bilirubin,Total < 0.2 mg/dL (0.3-1.2); Blood Urea Nitrogen 25 mg/dL (9-23); Calcium 9.5 mg/dL (8.3-10.6); Calcium (Corrected) 9.5 mg/dL (8.5-10.1); Chloride 101 mMol/L (98-107); Creatinine (Component) 0.6 mg/dL (0.6-1.3); Globulin 2.1 gm/dL (2.3-3.5); Glucose 102 mg/dL (74-106); Osmolality,Calculated 280 (275-295); Phosphorous 2.4 mg/dL (2.4-5.1); Sodium 138 mMol/L (136-145); Total Protein 6.3 gm/dL (5.7-8.2); eGFR > 60 See Note
[2024-12-06] MEDS: FLUTICASONE/SALMETEROL 250/50 14 DOSE INH 1 PUFF INH ×2 (07:20→19:43)
[2024-12-06 08:58] LABS: Ferritin 39 ng/mL (7.3-270.7); Iron 49 mcg/dL (50-170); Total Iron Binding Capacity 338 mcg/dL (250-425)
[2024-12-06] MEDS: cefTRIAXone/D5w 1gm IV premix 50 ML IV (09:08)
[2024-12-06] MEDS: predniSONE 20 MG TABLET 40 MG PO (09:08)
[2024-12-06] MEDS: DOXYCYCLINE INJ 100 MG in SODIUM CHLORIDE 0.9% (P) 100 ML IV ×2 (09:08→20:22)
[2024-12-06] MEDS: ENOXAPARIN SOD INJ 40 MG/0.4 ML SYRINGE SC (09:09)
--- NOTE | 2024-12-06 10:28 | PD.RESPRO ---
Documentation for date of: 12/06/24 Subjective Subjective Interval history: 12/06/2024: Patient examined at bedside today. No acute overnight events on telemetry, pulse currently 82. Patient reports that she feels worse from yesterday, feels like she is wheezing more and short more short of breath. She does not have any chest pain or palpitations at this time. Will continue to follow-up with RSV and Legionella, we will avoid beta-blockers on this patient and have primary team initiate Cardizem 120 CD. Patient BUN/creatinine of 25 and 0.6 respectively, magnesium 2.4 and potassium 4. Hemoglobin 10, ordered iron studies. Patient upgraded to med/tele due to history of diastolic heart failure Exam Vital Signs Temp Pulse Resp BP Pulse Ox O2 Del Method O2 Flow Rate 97.4 F 82 15 108/68 95 Nasal Cannula 2 12/06/24 08:00 12/06/24 08:00 12/06/24 08:00 12/06/24 08:00 12/06/24 08:00 12/06/24 08:00 12/06/24 08:00 Narrative Exam General: AAOx3, NAD, frail woman, looks older than her age, little muscle mass, curled up in bed on her side HEENT: Moist mucous membranes, conjunctiva clear, EOMI, PERRLA, Cardiovascular: S1, S2, radial pulses +2 bilat, Tachycardic Pulmonary: Wheezing throughout all lung valencia not improved from yesterday GI: No tenderness to light or deep palpitation, no guarding, rigidity, rebound tenderness or distension Extremities: No presence of trace or pitting edema in lower extremities bilaterally, dorsalis pedis pulses +2 bilaterally, little muscle mass on her LE Neuro: AAOx3, no focal motor or sensory deficits in the UE or LE bilat Psych: Good judgement, thought and behavior. cooperaetive Objective Labs 12/06/24 05:22 12/06/24 05:22 Labs: Laboratory Results - last 24 hr 12/06/24 05:22 WBC 7.3 D RBC 3.26 L Hgb 10.0 L Hct 31.4 L MCV 96 MCH 30.7 MCHC 31.8 RDW Std Deviation 55.2 H Plt Count 379 D Neut % (Auto) 69 Lymph % (Auto) 24 [place] % (Auto) 7 Eos % (Auto) 0 Baso % (Auto) 0 Neut # (Auto) 5.1 Lymph # (Auto) 1.7 [place] # (Auto) 0.5 Eos # (Auto) 0.0 Baso # (Auto) 0.0 Immature Gran # (Auto) 0.03 H Absolute Nucleated RBC 0.00 Immature Gran % 0 Nucleated RBC % 0 Sodium 138 Potassium 4.0 D Chloride 101 Carbon Dioxide 30.0 Anion Gap 7 BUN 25 H Creatinine 0.6 Estim Creat Clear Calc 58.0 L eGFR > 60 BUN/Creatinine Ratio 42 H Glucose 102 D Calculated Osmolality 280 Calcium 9.5 Corrected Calcium 9.5 Phosphorus 2.4 Magnesium 2.0 Iron 49 L TIBC 338 Ferritin 39 Total Bilirubin < 0.2 L AST 12 ALT < 7 L Alkaline Phosphatase 86 D Total Protein 6.3 Albumin 4.2 D Globulin 2.1 L Albumin/Globulin Ratio 2.0 Quality Measures Quality Measures none Advance care planning discussed with:: patient Assessment & Plan Assessment Current Active Medications: Generic Name Dose Route Start Last Admin Trade Name Freq PRN Reason Stop Dose Admin Acetaminophen 650 mg 12/04/24 19:35 Acetaminophen 325 Mg Tablet PO 01/03/25 19:34 Q6H PRN Fever >101.5 Hydrocodone Bitart/Acetaminophen 1 tab 12/04/24 19:39 12/06/24 04:53 Hydrocodone/Apap 10/325 Tab PO 12/09/24 19:38 1 tab Q6HR PRN Administration PAIN Acetylcysteine 3 ml 12/05/24 11:18 Acetylcysteine Rt Steph 10% 4 Ml Nebu INH 01/03/25 22:59 Q4HRRT PRN CONGESTION Albuterol/Ipratropium 3 ml 12/04/24 23:00 12/06/24 07:20 Albuterol/Ipratropium (Duoneb) Rt Steph 3 Ml Nebu INH 01/03/25 22:59 3 ml Q4HRRT DIANNE Administration Alprazolam 0.5 mg 12/04/24 19:38 12/06/24 06:09 Alprazolam 0.25 Mg Tablet PO 12/09/24 19:37 0.5 mg BID PRN Administration ANXIETY Benzonatate 200 mg 12/04/24 21:16 Benzonatate 100 Mg Capsule PO 01/03/25 21:15 Q8HR PRN COUGH OR CONGESTION Protocol Enoxaparin Sodium 40 mg 12/05/24 09:00 12/06/24 09:09 Enoxaparin Sod Inj 40 Mg/0.4 Ml Syringe SC 12/19/24 08:59 40 mg QDAY DIANNE Administration Ceftriaxone Sodium/Dextrose 50 mls @ 100 mls/hr 12/04/24 19:44 12/06/24 09:08 Rocephin/D5w 1gm Iv Premix IV 12/11/24 19:43 100 mls/hr QDAY DIANNE Administration Doxycycline Hyclate 100 mg/ 100 mls @ 100 mls/hr 12/05/24 09:00 12/06/24 09:08 Sodium Chloride IV 12/12/24 08:59 100 mls/hr BID DIANNE Administration Metoprolol Succinate 25 mg 12/05/24 09:00 12/05/24 08:48 Metoprolol Succinate Xl 25 Mg Tabcr PO 01/04/25 08:59 Not Given QDAY DIANNE Prednisone 40 mg 12/05/24 09:00 12/06/24 09:08 Prednisone 20 Mg Tablet PO 01/04/25 08:59 40 mg QDAY DIANNE Administration Fluticasone/Salmeterol 1 puff 12/05/24 07:00 12/06/24 07:20 Fluticasone/Salmeterol 250/50 14 Dose Inh INH 01/04/25 06:59 1 puff BIDRT DIANNE Administration Sodium Chloride 3 ml 12/04/24 17:00 Sodium Chloride Rt Steph 0.9% 3 Ml Nebu INH 01/03/25 16:59 PRN PRN SOLN Plan Assessment Patient is a 64-year-old female with a past medical history significant for COPD on 2?3 L home oxygen as needed, heart failure with preserved ejection fraction [60 to 65%], sinus tachycardia versus multifocal atrial tachycardia, chronic musculoskeletal pain, essential hypertension and anxiety presented today with a chief complaint of worsening shortness of breath. Patient will be admitted for treatment and management of acute on chronic respiratory failure with hypoxia secondary to COPD exacerbation. #Chronic diastolic heart failure with preserved ejection fraction [60-65%] #Multifocal atrial tachycardia #Essential Hypertension Echo shows combined diastolic heart failure with EF of 60 to 65% Multifocal atrial tachycardia likely related to COPD, seen in a EKG We do not want to resume patient's home metoprolol, avoiding COPD We want patient to resume Cardizem 120 mg CD Plan: ? Avoid beta-blockers in setting of COPD ? We recommend to restart Cardizem 120 mg CD #Acute on chronic respiratory failure with hypoxia secondary to #COPD exacerbation Chest x-ray significant for hyperexpanded lung valencia. No signs of consolidation, pleural effusion or pulmonary edema. Considering patient having some cooling device at home, and patient having hyponatremia, we will see if patient has Legionella, however chest x-ray does look chest hyperexpanded Recommending to add Azithromycin at this point as pt is on doxy and rocephin, but to add coverage for atypical and antinflammatory effect with azithro Plan: ? Wean down on oxygen as tolerated ? Follow-up RSV ? Follow-up sputum culture ? DuoNebs Q4 hourly while awake ? Fluticasone/salmeterol inhaler 1 puff twice daily ? Mucomyst nebs Q4 hourly as needed ? Continue prednisone 40 Mg p.o. daily ? Chest physiotherapy every 4 hourly while awake with Acapella device ? Benzonatate 200 Mg p.o. q8h prn ? Continue Rocephin 1 g daily ? Avoid beta-blockers ? Follow-up Legionella #Normocytic anemia Hemoglobin at 10 today, patient's baseline is around 12-13 No FOBT on patient, patient denies having bloody bowel movements Expect patient's hemoglobin to be higher due to COPD history Plan: ?Iron studies including ferritin, TIBC and iron #Anxiety #Chronic musculoskeletal pain #History of nicotine dependence Above handled by primary hospitalist team Patient seen and care discussed with my attending physician, Dr. Presley Agosto, PGY-1 Attending Provider Attestation/Addendum I have personally seen and examined the patient separately on the above date of service and discussed the plan of care with the resident. I reviewed the resident Dr. Bullock consultation progress note and agree with the resident findings and plan in the note above and have also edited the documentation to reflect my findings and plan. Tai Sherwood M.D. Interventional Cardiology
--- NOTE | 2024-12-06 11:00 | CHAP ---
Patient was visited by the Spiritual Care Volunteer who prayed for them. (Volunteer was in the hospital from c 10:00-11:00)
[2024-12-06] MEDS: DILTIAZEM 30 MG TABLET 60 MG PO (11:24)
[2024-12-06] MEDS: AZITHROMYCIN 250 MG TABLET 500 MG PO (11:29)
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
--- NOTE | 2024-12-06 16:14 | PC.SS ---
Rounding note: cultures pending. Cardiology is following the case.
[2024-12-06 17:09] LABS: Respiratory Syncytial Virus Ag Negative (Negative)
[2024-12-07] VITALS (11 sets, daily range): BP systolic 129–149; BP diastolic 81–96; PULSE 86–114; RESP 16–20; TEMP 36.1–37.1; O2SAT 94–99
[2024-12-07] MEDS: ALBUTEROL/IPRATROPIUM (Duoneb) RT SOL 3 ML NEBU INH ×4 (03:23→14:42)
[2024-12-07 05:22] LABS: Basophils % (Auto) 0 % (0-2.5); Eosinophils % (Auto) 0 % (0-10); Hematocrit 34.8 % (36.0-46.0); Hemoglobin 11.5 g/dL (12.0-16.0); Immature Granulocytes % (Auto) 0 % (0-0); Immature Granulocytes Auto 0.03 Thou/mm3 (0.00-0.00); Lymphocytes # (Auto) 2.2 Thou/mm3 (1.0-4.8); Lymphocytes % (Auto) 29 % (10-50); Mean Corpuscular Hemoglobin 31.2 pg (25.0-35.0); Mean Corpuscular Volume 94 fL (80-100); Monocytes # (Auto) 0.5 Thou/mm3 (0.0-0.8); Monocytes % (Auto) 7 % (0-12); Neutrophils % (Auto) 64 % (37-80); Nucleated Red Blood Cell % 0 /100 WBC (0); Platelet Count 482 Thou/mm3 (140-440); RDW Standard Deviation 54.4 fL (36.4-46.3); Red Blood Count 3.69 Miln/mm3 (4.00-5.20); White Blood Count 7.8 Thou/mm3 (3.6-11.0)
[2024-12-07] MEDS: HYDROcodone/APAP 10/325 TAB PO ×2 (05:29→11:34)
[2024-12-07] MEDS: ALPRazoLAM 0.25 MG TABLET 0.5 MG PO (05:44)
[2024-12-07] MEDS: FLUTICASONE/SALMETEROL 250/50 14 DOSE INH 1 PUFF INH (06:15)
[2024-12-07 06:17] LABS: Alanine Aminotransferase 15 U/L (10-49); Albumin, Serum 4.5 gm/dL (3.4-4.8); Albumin/Globulin Ratio 1.8 (1.2-2.2); Alkaline Phosphatase 98 U/L (46-116); Anion Gap 7 (7-16); Aspartate Amino Transferase 17 U/L (0-34); BUN/Creatinine Ratio 43 Ratio (12-20); Bilirubin,Total 0.2 mg/dL (0.3-1.2); Blood Urea Nitrogen 26 mg/dL (9-23); Calcium 9.9 mg/dL (8.3-10.6); Calcium (Corrected) 9.9 mg/dL (8.5-10.1); Carbon Dioxide 32.8 mMol/L (20.0-31.0); Chloride 98 mMol/L (98-107); Creatinine (Component) 0.6 mg/dL (0.6-1.3); Globulin 2.5 gm/dL (2.3-3.5); Glucose 86 mg/dL (74-106); Magnesium 2.2 mg/dL (1.6-2.6); Osmolality,Calculated 279 (275-295); Phosphorous 2.7 mg/dL (2.4-5.1); Potassium 4.6 mMol/L (3.4-5.1); Sodium 138 mMol/L (136-145); eGFR > 60 See Note
[2024-12-07] MEDS: AZITHROMYCIN 250 MG TABLET 500 MG PO (09:25)
[2024-12-07] MEDS: cefTRIAXone/D5w 1gm IV premix 50 ML IV (09:26)
[2024-12-07] MEDS: predniSONE 20 MG TABLET 40 MG PO (09:26)
[2024-12-07] MEDS: ENOXAPARIN SOD INJ 40 MG/0.4 ML SYRINGE SC (09:26)
[2024-12-07] MEDS: DILTIAZEM 30 MG TABLET 60 MG PO ×2 (09:26→12:20)
--- NOTE | 2024-12-07 12:00 | PD.IMPROG ---
Documentation for date of: 12/07/24 Subjective Subjective Interval history: Patient COPD exacerbation has improved but still has some wheezing. Primary team panning to discharge the patient today on Medrol pack, azithromycin, albuterol as well as Advair discus. Discussed with the primary team to start possible montelukast if no other contraindications and to follow-up as outpatient closely and give a pulmonary follow-up for the patient to continue to uptitrate her long-acting inhalers. Patient should have albuterol and Atrovent nebulizations at home complete supply and should have possible home health care. Regarding her hypertension and and history of MAT or sinus tachycardia in the setting of COPD exacerbation patient should be only discharged on diltiazem CD 120 mg once daily. Patient should not be on any kind of beta-[place] given her severe COPD and continue to hold of the losartan until the patient 5 drops as outpatient. Recommend patient should be discharged with follow-up with primary care in the resident clinic as well as pulmonary follow-up. Patient will follow-up with me in the clinic within 1 week. Exam Vital Signs Temp Pulse Resp BP Pulse Ox O2 Del Method O2 Flow Rate 97 F 109 H 20 149/96 H 94 L Nasal Cannula 2 12/07/24 12:00 12/07/24 14:43 12/07/24 14:43 12/07/24 12:20 12/07/24 14:43 12/07/24 12:00 12/07/24 14:43 Narrative Exam General: AAOx3, NAD, frail woman, looks older than her age, little muscle mass, curled up in bed on her side HEENT: Moist mucous membranes, conjunctiva clear, EOMI, PERRLA, Cardiovascular: S1, S2, radial pulses +2 bilat, Tachycardic Pulmonary: Wheezing throughout all lung valencia , mildly improved from yesterday GI: No tenderness to light or deep palpitation, no guarding, rigidity, rebound tenderness or distension Extremities: No presence of trace or pitting edema in lower extremities bilaterally, dorsalis pedis pulses +2 bilaterally, little muscle mass on her LE Neuro: AAOx3, no focal motor or sensory deficits in the UE or LE bilat Psych: Good judgement, thought and behavior. cooperaetive Objective Labs 12/07/24 04:35 12/07/24 04:35 Assessment & Plan A&P Narrative Patient is a 64-year-old female with a past medical history significant for COPD on 2?3 L home oxygen as needed, heart failure with preserved ejection fraction [60 to 65%], sinus tachycardia versus multifocal atrial tachycardia, chronic musculoskeletal pain, essential hypertension and anxiety presented today with a chief complaint of worsening shortness of breath. Patient will be admitted for treatment and management of acute on chronic respiratory failure with hypoxia secondary to COPD exacerbation. #Chronic diastolic heart failure with preserved ejection fraction [60-65%] #Multifocal atrial tachycardia #Essential Hypertension Echo shows combined diastolic heart failure with EF of 60 to 65% Multifocal atrial tachycardia likely related to COPD, seen in a EKG We do not want to resume patient's home metoprolol, avoiding COPD We want patient to resume Cardizem 120 mg CD Plan: ? Avoid beta-blockers in setting of COPD ? We recommend to restart Cardizem 120 mg CD #Acute on chronic respiratory failure with hypoxia secondary to #COPD exacerbation Chest x-ray significant for hyperexpanded lung valencia. No signs of consolidation, pleural effusion or pulmonary edema. Considering patient having some cooling device at home, and patient having hyponatremia, we will see if patient has Legionella, however chest x-ray does look chest hyperexpanded Recommending to add Azithromycin at this point as pt is on doxy and rocephin, but to add coverage for atypical and antinflammatory effect with azithro Plan: ? Wean down on oxygen as tolerated ? Follow-up RSV ? Follow-up sputum culture ? DuoNebs Q4 hourly while awake ? Fluticasone/salmeterol inhaler 1 puff twice daily ? Mucomyst nebs Q4 hourly as needed ? Continue prednisone 40 Mg p.o. daily ? Chest physiotherapy every 4 hourly while awake with Acapella device ? Benzonatate 200 Mg p.o. q8h prn ? Continue Rocephin 1 g daily ? Avoid beta-blockers ? Follow-up Legionella 12/07/24 Patient COPD exacerbation has improved but still has some wheezing. Primary team panning to discharge the patient today on Medrol pack, azithromycin, albuterol as well as Advair discus. Discussed with the primary team to start possible montelukast if no other contraindications and to follow-up as outpatient closely and give a pulmonary follow-up for the patient to continue to uptitrate her long-acting inhalers. Patient should have albuterol and Atrovent nebulizations at home complete supply and should have possible home health care. Regarding her hypertension and and history of MAT or sinus tachycardia in the setting of COPD exacerbation patient should be only discharged on diltiazem CD 120 mg once daily. Patient should not be on any kind of beta-[place] given her severe COPD and continue to hold of the losartan until the patient 5 drops as outpatient. Recommend patient should be discharged with follow-up with primary care in the resident clinic as well as pulmonary follow-up. Patient will follow-up with me in the clinic within 1 week. #Normocytic anemia Hemoglobin at 10 today, patient's baseline is around 12-13 No FOBT on patient, patient denies having bloody bowel movements Expect patient's hemoglobin to be higher due to COPD history Plan: ?Iron studies including ferritin, TIBC and iron #Anxiety #Chronic musculoskeletal pain #History of nicotine dependence Management of rest of the medical conditions as per primary team and other consultants. Thank you for the consult and allowing me to participate in the care of the patient. Cardiology will continue to follow. Tai Sherwood M.D. Interventional Cardiology Time Spent With Patient Time: Total time spent is greater than 50% in coordination of care (as documented) at patient's floor/unit and/or counseling patient:
--- NOTE | 2024-12-07 13:11 | EKG_ITS ---
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
--- NOTE | 2024-12-07 14:23 | ESDS_ITS ---
Planned Discharge Date 12/07/24 DS: Providers Provider Date of admission: 12/04/24 19:35 Primary care physician: Henry Madrigal MD Admitting Provider: Casimiro Cardenas MD Attending Provider on Admission: Tyra Carter MD Consults: 12/04/24 20:29 Consult to Cardiology Routine Comment: Consulting Provider: Tai Sherwood Attending Provider on DC: Tyra Carter MD Discharging Provider: Nabeel Padgett MD DS: Diagnosis Problem List Completed Was Problem List Reviewed/Reconciled?: Yes Hospital Course Hospital Course Hospital course: 64-year-old female with a past medical history significant for COPD on 2?3 L home oxygen as needed, heart failure with preserved ejection fraction [60 to 65%], sinus tachycardia versus multifocal atrial tachycardia, chronic musculoskeletal pain, essential hypertension and anxiety presented with a chief complaint of worsening shortness of breath. Patient stated that for the week prior to admission she had worsening shortness of breath, both at rest and on minimal exertion. This was also associated with a cough productive of green sputum and pleuritic chest pain whenever she coughs. Denied any fever, vomiting, recent travel, diarrhea, change in appetite or weight loss. Prior to admission, patient had an appointment with her insole filler, Dr. Sherwood, who assessed her as having a COPD exacerbation and recommended she present to the emergency department. Patient was for COPD exacerbation, appropriately treated with breathing treatments, Rocephin, azithromycin, prednisone, CPT. Patient showed subjective improvement in symptoms, remained on her home dose of O2. Patient's blood pressure was soft and so her heart medication was held during stay. Patient was initiated on Cardizem 120 mg once daily as per cardiology recs, well tolerated. Patient medically cleared and stable for discharge. Discharge plan: Patient will DC home. Medications of DC include: cardizem 120mg PO one a day for heart rate control. Hold Losartan until follow up with PCP. Hold losartan and metoprolol. Please see Dr Goodman at the [facility] on Monday12/13/24 in the afternoon for discharge follow up. Diagnoses: #COPD exacerbation, resolved #Chronic diastolic heart failure with preserved ejection fraction [60-65%] #Acute kidney injury, prerenal versus renal, resolved #Essential Hypertension #Anxiety #Chronic musculoskeletal pain #History of nicotine dependence Plan of care discussed with senior resident Dr. Goodman PGY?[address] Carter. Nabeel Padgett MD PGY?1 Time Spent with Patient Time attestation: Total time spent providing and/or coordinating discharge services: Exam Vital Signs Temp Pulse Resp BP Pulse Ox O2 Del Method O2 Flow Rate 97 F 109 H 18 149/96 H 94 L Nasal Cannula 2 12/07/24 12:00 12/07/24 12:20 12/07/24 12:12/07/24 12:20 12/07/24 12:12/07/24 12:12/07/24 12:00 Narrative Exam PE: Gen: Well-developed and well-nourished. HEENT: NCAT, PERRLA, EOMI, MMM, anicteric conjunctivae. CVS: normal S1 and S2. RRR. No M/R/G. Resp: Diffuse expiratory wheezes and mild rhonchi. Abd: soft, non-tender, non-distended. BS+ in all 4 quadrants. MSK: Good ROM in BUE & BLE. No edema or rash. Neuro: CN II-XII grossly intact. Strength 5/5 in BUE & BLE. Alert and oriented x3. Psych: appropriate mood and affect. Discharge Plan Plan Patient Disposition: HOME (Self Care) Patient condition on transfer: Stable Care Plan Goals: Patient will DC home. Medications of DC include: cardizem 120mg PO one a day for heart rate control. Hold Losartan until follow up with PCP. Hold losartan and metoprolol. Please see Dr Goodman at the [facility] on Monday12/13/24 in the afternoon for discharge follow up. Prescriptions/Referrals Prescriptions/Med Rec: New methylprednisolone [Medrol (Joaquin)] 4 mg tablets,dose pack 4 mg PO QAM Qty: 21 0RF diltiazem HCl [Cardizem CD] 120 mg capsule,extended release 24hr 120 mg PO QAM Qty: 30 3RF azithromycin 500 mg tablet 500 mg PO QDAY Qty: 1 0RF amoxicillin-pot clavulanate 875-125 mg tablet 1 tab PO BID Qty: 6 0RF albuterol sulfate 90 mcg/actuation HFA aerosol inhaler 1 inh inhalation QID PRN (Reason: shortness of breath or wheezing) Qty: 8.5 3RF fluticasone propion-salmeterol [Advair Diskus] 250-50 mcg/dose blister with device 1 inh inhalation BID Qty: 60 3RF montelukast 10 mg tablet 10 mg PO QDAY Qty: 90 0RF Continued albuterol sulfate [ProAir HFA] 8.5 GM HFA aerosol inhaler 2 puff IH Q4HR PRN (Reason: COUGH OR CONGESTION) Qty: 0 hydrocodone-acetaminophen 10-325 mg tablet 1 tab PO QID Hold Instructions: Resume on 12/29/23. Due to acute liver injury furosemide 20 mg tablet 20 mg PO QDAY Held losartan 25 mg tablet 25 mg PO QDAY Hold Instructions: Resume on 12/13/24. Restart at discretion of PCP Discontinued metoprolol succinate 25 mg tablet extended release 24 hr 25 mg PO QDAY Referrals: Henry Madrigal MD [Primary Care Provider] - Patient/Caregiver Discharge Instructions Discharge Activity: activity as tolerated Education Materials: COPD: Chronic Coughing, COPD: Wheezing and Chest Tightness, Calcium Channel Blockers Dc, COPD: Using Inhalers, COPD Meds Print Language: Wolof Stand Alone Forms: [employer] Award Info., Patient Portal Info Letter Discharge Order Discharge Orders: Discharge (Routine); Ordered 12/07/24 Ordered By: Dennis Goodman Quality Discharge Quality Measures VTE prophylaxis Attestestation MD Attestation I attest that I was physically present for the evaluation, physical examination, lab and imaging review of the patient with the residents. I discussed the case with the residents and agree with the findings and plans of care as documented above. At bedside today, patient complained of mild chest discomfort. Obtain EKG and troponin, troponin was negative and EKG was negative for ST elevation. Saturating well on 2 L nasal cannula. Continues to have some bilateral wheezing but likely due to advanced COPD. Rest of the vitals are stable. Lab results are also stable. We will discharge home on oral antibiotics. Recommended to follow-up with PCP and cardiology in 1 to 2 weeks of discharge. Tyar Carter MD
[2024-12-07 14:27] LABS: Troponin I 0.023 ng/mL (0.0-0.045)
== END 2024-12-07 16:20 | disposition home or self-care (01) | DRG 190 ==
LOC: SERX 19:31 → SERHOLD 19:53 → S3SX 21:36
PROVIDERS: Nurse Practitioner Primary Care; Admitting Provider Internal Medicine; Emergency Provider Emergency Medicine; PCP Family Medicine; Visit Provider Student in an Organized Health Care Education/Training Program
DX: J44.1 Chronic obstructive pulmonary disease with (acute) exacerbation (principal); J18.9 Pneumonia, unspecified organism; J96.21 Acute and chronic respiratory failure with hypoxia; I50.32 Chronic diastolic (congestive) heart failure; N17.9 Acute kidney failure, unspecified; E87.1 Hypo-osmolality and hyponatremia; I11.0 Hypertensive heart disease with heart failure; F41.9 Anxiety disorder, unspecified; Z99.81 Dependence on supplemental oxygen; Z90.710 Acquired absence of both cervix and uterus; Z87.891 Personal history of nicotine dependence; M79.18 Myalgia, other site; G89.29 Other chronic pain
CPT/HCPCS: 36415; 36600; 71045; 80048; 80053; 82728; 82803; 83540; 83550; 83735; 83880; 84100; 84145; 84484; 85025; 85610; 85730; 87081; 87205; 87400; 87449; 87634; 87811; 93005; 94640; 94644; 94664; 94667; 94762; A9270; J0696; J1650; J2919; J3490; J7030; J7512

== ENCOUNTER 2025-05-30 07:54 | Emergency (ER) | payer MEDICARE, MEDICAID, SELFPAY ==
--- NOTE | 2025-05-30 07:57 | PC.CC ---
ASWYessi responded to code blue. It was reported from EMS that patient was brought in from home. ASW informed security that if family presents themselves to the hospital to please notify psych social worker so we can take the family to the consultation room.
--- NOTE | 2025-05-30 07:58 | CHAP ---
Responded to Code Tony (07:58). Gave comfort and prayed with the .
--- NOTE | 2025-05-30 08:18 | PD.EDCPR ---
ED CPR RME/HPI General Stated Complaint: CODE BLUE Arrival date/time: 05/30/25 07:54 RME / HPI RME / HPI narrative: DR. TURPIN MAIN ED EVALUATION: 753: Patient arrived as a code blue and was immediately seen by me. 64 year old female with past medical history significant for COPD on 2?3 L home oxygen as needed, heart failure with preserved ejection fraction [60 to 65%], sinus tachycardia versus multifocal atrial tachycardia, chronic musculoskeletal pain, essential hypertension and anxiety presents to the Emergency Department BIBA as a code blue, patient has been down since about 0744 hours; EMS started CPR en route and CPR was continued upon arrival at 0754 hours. Upon ED arrival: patient had no signs of life, patient was pulseless, patient was immediately transferred to a gurney, and CPR was continued. No history or ROS obtainable by patient due to unresponsiveness. Per EMS, family was not able to provide any history. Per EMS, when they got on scene patient was bradycardic in the low 30's and with agonal breathing; they started bagging the patient and then patient coded. Prior to arrival, EMS gave 3 rounds of EPI. Blood glucose here was 94. Related Data Home Medications ?Medication ?Instructions ?Recorded ?Confirmed albuterol sulfate 90 mcg/actuation 2 puff IH Q4HR PRN COUGH OR 01/18/15 12/04/24 aerosol inhaler (ProAir HFA) CONGESTION ##0 hydrocodone 10 mg-acetaminophen 1 tab PO QID 10/26/22 12/04/24 325 mg tablet losartan 25 mg tablet 25 mg PO QDAY 03/15/24 12/04/24 Held on 12/07/24. Instructions: Resume on 12/13/24. Restart at discretion of PCP furosemide 20 mg tablet 20 mg PO QDAY 07/06/24 12/04/24 Previous Rx's ?Medication ?Instructions ?Recorded methylprednisolone 4 mg tablets in 4 mg PO QAM #21 tabs 12/06/24 a dose pack (Medrol (Joaquin)) albuterol sulfate 90 mcg/actuation 1 inh inhalation QID PRN shortness 12/07/24 aerosol inhaler of breath or wheezing #8.5 grams amoxicillin 875 mg-potassium 1 tab PO BID #6 tabs 12/07/24 clavulanate 125 mg tablet azithromycin 500 mg tablet 500 mg PO QDAY #1 tab 12/07/24 diltiazem HCl 120 mg 120 mg PO QAM #30 caps 12/07/24 capsule,extended release 24 hr (Cardizem CD) fluticasone 250 mcg-salmeterol 50 1 inh inhalation BID #60 ea 12/07/24 mcg/dose blistr powdr for inhalation (Advair Diskus) montelukast 10 mg tablet 10 mg PO QDAY #90 tabs 12/07/24 Allergies Allergy/AdvReac Type Severity Reaction Status Date / Time ibuprofen Allergy Severe THROAT Verified 12/04/24 16:35 SWELLS, CANT BREATH ketorolac Allergy Severe THROAT Verified 12/04/24 16:35 SWELLS, CANT BREATH naproxen Allergy Severe SWELLING Verified 12/04/24 16:35 TO THROAT, CANT BREATH NSAIDS (Non-Steroidal Allergy Severe THROAT Verified 12/04/24 16:35 Anti-Inflamma SWELLS, CANT BREATH tramadol Allergy Severe Swelling Verified 12/04/24 16:35 of Lip/Tongue/Throat Review of Systems Review of Systems Systems Reviewed: All systems reviewed, normal except as documented Past Medical History Past Medical History Comments PMH COMMENT: Past medical history: ? COPD ? Heart failure preserved ejection fraction [60 to 65%] ? Sinus tachycardia versus multifocal atrial tachycardia ? Chronic musculoskeletal pain [cervical region] ? Essential hypertension ? Anxiety Medication list: ? Losartan 25 Mg p.o. daily ? Furosemide 40 Mg p.o. daily ? Promethazine ? Fluticasone/salmeterol inhaler ? Lidocaine patch ? Metoprolol succinate 25 Mg p.o. daily Past surgical history: - Hysterectomy due to endometriosis ?1990 ? Left hand pins in 4th and 5th digits - Right hand carpal tunnel release Allergies: -NSAIDS : Anaphylaxis - Tramadol : Anaphylaxis Social history: Occupational History: Now retired. 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 Education Level: Graduated High School Marital Status: with 4 kids. 1 Daughter 4 years ago in a car crash Tobacco use: 50 pack year smoking history. Quit 1 year ago ETHO use: Denies Illicit drug use: Denies Social History Note: lives with and 3 grandkids Family History: - Mother and Father have Alzeihmer's Dementia Course Course Course Narrative: 0744: Downtime, before ER arrival. CPR by EMS started. 0754: Patient arrived as a code blue and was immediately seen by me. 0816: Time of . Quality Measures none Cardiac Arrest / CPR MDM Narrative MDM Narrative:: I, Anne Marie Gallegos, am scribing for and in the presence of Dr. Toro. 0744: Downtime, before ER arrival. CPR by EMS started. 0754: Patient arrived as a code blue and was immediately seen by me. Patient was given 3 rounds of EPI prior to arrival by EMS. Here, we gave more EPI, amiodarone, and shocked x5 at 200 J. Time of was 0816 hours. Patient data External records reviewed:: [facility] previous records and EMS form Clinical information provided by:: EMS Social determinants that could affect healthcare access:: other (specify) (smoking) Patient has the following chronic illnesses:: COPD on 2?3 L home oxygen as needed, heart failure with preserved ejection fraction [60 to 65%], sinus tachycardia versus multifocal atrial tachycardia, chronic musculoskeletal pain, essential hypertension and anxiety How is presenting disease/condition affected by chronic disease/condition?: exacerbated by Evaluation data The following diagnostics were reviewed and interpreted by me:: other (specify) (none) Lab and/or radiology exams considered but not ordered:: none Interpretation Summary: See narrative above. Medications / Prescriptions Medications or Prescriptions considered but not ordered:: none Medication administrations:: see above Consultations Consultation(s) initiated? (list below): No Diagnosis Cardiac arrest differential diagnosis: acute massive pulmonary embolism, acute respiratory failure, acute myocardial infarction, cardiac arrest and sudden cardiac Admission Indicated Admission indicated?: not indicated Admission Request Was there a request for admission?: No Disposition Plan Disposition Plan: other (specify) (Patient ) Discharge Plan Prescriptions/Referrals Prescriptions/Med Rec: No Action albuterol sulfate [ProAir HFA] 8.5 GM HFA aerosol inhaler 2 puff IH Q4HR PRN (Reason: COUGH OR CONGESTION) Qty: 0 hydrocodone-acetaminophen 10-325 mg tablet 1 tab PO QID furosemide 20 mg tablet 20 mg PO QDAY losartan 25 mg tablet 25 mg PO QDAY methylprednisolone [Medrol (Joaquin)] 4 mg tablets,dose pack 4 mg PO QAM Qty: 21 0RF diltiazem HCl [Cardizem CD] 120 mg capsule,extended release 24hr 120 mg PO QAM Qty: 30 3RF azithromycin 500 mg tablet 500 mg PO QDAY Qty: 1 0RF amoxicillin-pot clavulanate 875-125 mg tablet 1 tab PO BID Qty: 6 0RF albuterol sulfate 90 mcg/actuation HFA aerosol inhaler 1 inh inhalation QID PRN (Reason: shortness of breath or wheezing) Qty: 8.5 3RF fluticasone propion-salmeterol [Advair Diskus] 250-50 mcg/dose blister with device 1 inh inhalation BID Qty: 60 3RF montelukast 10 mg tablet 10 mg PO QDAY Qty: 90 0RF Referrals: Henry Madrigal MD [Primary Care Provider] - In 1 week Patient/Caregiver Discharge Instructions Print Language: Macedonian
--- NOTE | 2025-05-30 08:23 | EDNOTE_ITS ---
ED CPR RME/HPI General Stated Complaint: CODE BLUE Source: EMS Arrival date/time: 05/30/25 07:54 Mode of arrival: EMS Limitations: other (Patient mental status) RME / HPI RME / HPI narrative: DR. TURPIN MAIN ED EVALUATION: 753: Patient arrived as a code blue and was immediately seen by me. 64 year old female with past medical history significant for COPD on 2?3 L home oxygen as needed, heart failure with preserved ejection fraction [60 to 65%], sinus tachycardia versus multifocal atrial tachycardia, chronic musculoskeletal pain, essential hypertension and anxiety presents to the Emergency Department BIBA as a code blue, patient has been down since about 0744 hours; EMS started CPR en route and CPR was continued upon arrival at 0754 hours. Upon ED arrival: patient had no signs of life, patient was pulseless, patient was immediately transferred to a rred bank, and CPR was continued. No history or ROS obtainable by patient due to unresponsiveness. Per EMS, family was not able to provide any history. Per EMS, when they got on scene patient was bradycardic in the low 30's and with agonal breathing; they started bagging the patient and then patient coded. Prior to arrival, EMS gave 3 rounds of EPI. Blood glucose here was 94. q3min Pulse check: No pulse, Rhythm V fibPulse check every 2 minutes Appendectomy every 3 minutes Multiple shocks given Total time of CPR was 25 minutes Outcome patient at 8:16 AM Patient also given amiodarone twice 200 mg Epi every 3 minutes Bicarb x 1 Calcium chloride x 1 Bedside ultrasound shows no clot activity except for flickering movement of the ventricle and was slowing down Arterial Doppler on the femoral area showed no pulse Patient pronounced at 8:16 AM AED applied by bystander/first aid officer: Yes Number of shocks delivered: >3 Initial findings in the field: unresponsive ROSC in the field: No Associated injuries: No Related Data Home Medications ?Medication ?Instructions ?Recorded ?Confirmed albuterol sulfate 90 mcg/actuation 2 puff IH Q4HR PRN COUGH OR 01/18/15 12/04/24 aerosol inhaler (ProAir HFA) CONGESTION ##0 hydrocodone 10 mg-acetaminophen 1 tab PO QID 10/26/22 12/04/24 325 mg tablet losartan 25 mg tablet 25 mg PO QDAY 03/15/2412/04 Held on 12/07/24. Instructions: Resume on 12/13/24. Restart at discretion of PCP furosemide 20 mg tablet 20 mg PO QDAY 07/06/2412/04 Previous Rx's ?Medication ?Instructions ?Recorded methylprednisolone 4 mg tablets in 4 mg PO QAM #21 tab s 12/06/24 a dose pack (Medrol (Joaquin)) albuterol sulfate 90 mcg/actuation 1 inh inhalation QI D PRN shortness 12/07/24 aerosol inhaler of breath or wheezing #8.5 g chung amoxicillin 875 mg-potassium 1 tab PO BID #6 tabs 11/20 07/14 clavulanate 125 mg tablet azithromycin 500 mg tablet 500 mg PO QDAY #1 tab 12/07 diltiazem HCl 120 mg 120 mg PO QAM #30 caps 12/07 capsule,extended release 24 hr (Cardizem CD) fluticasone 250 mcg-salmeterol 50 1 inh inhalation BID #60 ea 12/07/24 mcg/dose blistr powdr for inhalation (Advair Diskus) montelukast 10 mg tablet 10 mg PO QDAY #90 tabs 12/07 Allergies Allergy/AdvReac Type Severity Reaction Status Date / Time ibuprofen Allergy Severe THROAT Verified 12/04/24 16:35 SWELLS, CANT BREATH ketorolac Allergy Severe THROAT Verified 12/04/24 16:35 SWELLS, CANT BREATH naproxen Allergy Severe SWELLING Verified 12/04/24 16:35 TO THROAT, CANT BREATH NSAIDS (Non-Steroidal Allergy Severe THROAT Verified 12/04/24 16:35 Anti-Inflamma SWELLS, CANT BREATH tramadol Allergy Severe Swelling Verified 12/04/24 16:35 of Lip/Tongue/Throat Review of Systems Review of Systems ROS Unobtainable: unobtainable due to mental status and unobtainable due to m edical condition Past Medical History Past Medical History Comments PMH COMMENT: Past medical history: ? COPD ? Heart failure preserved ejection fraction [60 to 65%] ? Sinus tachycardia versus multifocal atrial tachycardia ? Chronic musculoskeletal pain [cervical region] ? Essential hypertension ? Anxiety Medication list: ? Losartan 25 Mg p.o. daily ? Furosemide 40 Mg p.o. daily ? Promethazine ? Fluticasone/salmeterol inhaler ? Lidocaine patch ? Metoprolol succinate 25 Mg p.o. daily Past surgical history: - Hysterectomy due to endometriosis ?1990 ? Left hand pins in 4th and 5th digits - Right hand carpal tunnel release Allergies: -NSAIDS : Anaphylaxis - Tramadol : Anaphylaxis Social history: Occupational History: Now retired. 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 Education Level: Graduated High School Marital Status: with 4 kids. 1 Daughter 4 years ago in a car crash Tobacco use: 50 pack year smoking history. Quit 1 year ago ETHO use: Denies Illicit drug use: Denies Social History Note: lives with and 3 grandkids Family History: - Mother and Father have Alzeihmer's Dementia ED Exam General Limitations: Present other (Patient mental status) General appearance: Present cachectic and other ENT ENT exam: Present normal exam Neck Neck exam: Present normal inspection Chest Chest inspection: Present normal inspection Respiratory Respiratory exam: Present other Cardiovascular Cardiovascular exam: Present other Abdominal Exam Abdominal exam: Present soft Rectal Exam Rectal exam: Present deferred External exam: Present normal external exam Extremities Exam Extremities exam: Present normal inspection Back Exam Back exam: Present normal inspection Skin Skin exam: Present dry, cyanosis and mottled Course Course Course Narrative: 0744: Downtime, before ER arrival. CPR by EMS started. 0754: Patient arrived as a code blue and was immediately seen by me. 0816: Time of . Quality Measures none Cardiac Arrest / CPR MDM Narrative MDM Narrative:: I, Anne Marie Gallegos, ruperto scribing for and in the presence of Dr. Toro. 0744: Downtime, before ER arrival. CPR by EMS started. 0754: Patient arrived as a code blue and was immediately seen by me. Patient was given 3 rounds of EPI prior to arrival by EMS. Here, we gave more EPI, amiodarone, and shocked x5 at 200 J. Time of was 0816 hours. Patient data External records reviewed:: [facility] previous records and EMS form Clinical information provided by:: EMS Social determinants that could affect healthcare access:: other (specify) (smoking) Patient has the following chronic illnesses:: COPD on 2?3 L home oxygen as needed, heart failure with preserved ejection fraction [60 to 65%], sinus tachycardia versus multifocal atrial tachycardia, chronic musculoskeletal pain, essential hypertension and anxiety. How is presenting disease/condition affected by chronic disease/condition?: exacerbated by Evaluation data The following diagnostics were reviewed and interpreted by me:: other (specify) (none) Lab and/or radiology exams considered but not ordered:: none Interpretation Summary: No labs, blood glucose was 94. Medications / Prescriptions Medications or Prescriptions considered but not ordered:: none Medication administrations:: see above Consultations Consultation(s) initiated? (list below): No Diagnosis Cardiac arrest differential diagnosis: acute massive pulmonary embolism, acute respiratory failure, acute myocardial infarction, cardiac arrest and sudden cardiac Most likely diagnosis given after review of the tests above:: Cardiac arrest Admission Indicated Admission indicated?: not indicated Admission Request Was there a request for admission?: No Disposition Plan Disposition Plan: other (specify) (Patient ) Critical Care Time Critical Care Time Critical Care Time: Yes Total Critical Care Time (min.): 45 Attestation: The high probability of sudden, clinically significant deterioration in the patient?s condition required the highest level of my preparedness to intervene urgently. The services I provided to this patient were to treat and/or prevent clinically significant deterioration. Services included the following: chart data review, reviewing nursing notes and/or old charts, documentation time, building consultant collaboration regarding findings and treatment options, medication orders and management, direct patient care, vital sign assessments and ordering, interpreting and reviewing diagnostic studies and lab tests. Aggregate critical care time includes only time during which I was engaged in wo rk directly related to the patient?s care, as described above, whether at bedside or elsewhere in the Emergency Department. It did not include time spent performing other reported procedures or the services of residents, students, nurses or physician assistants. Discharge Plan Plan Patient Disposition: Prescriptions/Referrals Prescriptions/Med Rec: No Action albuterol sulfate [ProAir HFA] 8.5 GM HFA aerosol inhaler 2 puff IH Q4HR PRN (Reason: COUGH OR CONGESTION) Qty: 0 hydrocodone-acetaminophen 10-325 mg tablet 1 tab PO QID furosemide 20 mg tablet 20 mg PO QDAY losartan 25 mg tablet 25 mg PO QDAY methylprednisolone [Medrol (Joaquin)] 4 mg tablets,dose pack 4 mg PO QAM Qty: 21 0RF diltiazem HCl [Cardizem CD] 120 mg capsule,extended release 24hr 120 mg PO QAM Qty: 30 3RF azithromycin 500 mg tablet 500 mg PO QDAY Qty: 1 0RF amoxicillin-pot clavulanate 875-125 mg tablet 1 tab PO BID Qty: 6 0RF albuterol sulfate 90 mcg/actuation HFA aerosol inhaler 1 inh inhalation QID PRN (Reason: shortness of breath or wheezing) Qty: 8.5 3RF fluticasone propion-salmeterol [Advair Diskus] 250-50 mcg/dose blister with device 1 inh inhalation BID Qty: 60 3RF montelukast 10 mg tablet 10 mg PO QDAY Qty: 90 0RF Referrals: Henry Madrigal MD [Primary Care Provider] - In 1 week Problem List Clinical Impression: Cardiac arrest Patient/Caregiver Discharge Instructions Print Language: Taiwanese
--- NOTE | 2025-05-30 08:54 | PC.CC ---
Yessi SCHWARZ was consulted by Transfer RN Deep regarding assistance setting up transportation for patient to [facility]. ASW arranged transportation for patient with [facility].
--- NOTE | 2025-05-30 10:30 | PC.NURSE ---
PT BIBA FROM HOME A CODE BLUE, AT HOME FAMILY FOUND PT SEIZED UP , PT WAS REAGAN FOR EMS WHEN THEY ARRIVED ON SCENE, PT BEGAN HAVING AGONAL BREATHING, THEY BEGAN ACLS PROTOCOL AND INTUBATED PT. ONCE PT ARRIVED HERE IN ED, ED STAFF ASSUMED CARE AND FOLLOWED ACLS PROTOCOL, SEE CODE SHEET. [facility] CALLED AT 0816. [facility] PTS SPOUSE WAS HERE AND NOTIFIED BY MD OF PTS PASSING, AND REQUESTED OTT HOME. MECHANICAL RELIABILITY ENGINEER CONTACTED. [employer] CONTACTED, REPORTS PT IS NOT A CANIDATE FOR THEM AND PT CAN BE RELEASED TO HOME. [employer] ELECTRO OPTICS ENGINEER WAS NILDA, #[phone].
== END 2025-05-30 10:47 | disposition expired ==
PROVIDERS: Emergency Provider Emergency Medicine; PCP Family Medicine
DX: I46.9 Cardiac arrest, cause unspecified (principal); I11.0 Hypertensive heart disease with heart failure; I50.32 Chronic diastolic (congestive) heart failure; Z87.891 Personal history of nicotine dependence
CPT/HCPCS: 92950; 99285; J0171